=== PATIENT | female | born 1980 | race Caucasian/White ===

== ENCOUNTER → 2018-02-23 | Outpatient (CLI) | payer OTHER | LOC: MC.RAD 13:20 | DX: Z12.31 Encounter for screening mammogram for malignant neoplasm of breast (principal) ==

== ENCOUNTER 2018-06-13 14:00 | Outpatient (RCR) | payer OTHER ==
[2018-06-07 14:40] VITALS: BP 112/67; PULSE 88; TEMP 98.7
--- NOTE | 2018-06-07 16:33 | NUR ---
INT discontinued intact. Next appointment made
[2018-06-11 14:14] VITALS: BP 110/62; PULSE 78; TEMP 98
[~2018-06-13] VITALS: Ht 167.6 cm; Wt 101.0 kg
[2018-06-13 14:10] VITALS: BP 110/70; PULSE 84; TEMP 97.4
--- NOTE | 2018-06-13 15:20 | NUR ---
Report to Aime Stearns RN who assumed care at this time.
--- NOTE | 2018-06-13 15:26 | NUR ---
Report received fromViry rob.
== END 2018-06-13 16:23 | disposition home or self-care (01) ==
LOC: EUO 14:00
DX: D64.9 Anemia, unspecified (principal); Z79.899 Other long term (current) drug therapy
CPT/HCPCS: J2916; J7050

== ENCOUNTER 2018-08-06 14:00 | Outpatient (RCR) | payer OTHER ==
[2018-08-01 14:15] VITALS: BP 126/78; PULSE 65; TEMP 97.9
[2018-08-03 15:10] VITALS: BP 133/71; PULSE 80; TEMP 98.1
[~2018-08-06] VITALS: Ht 167.6 cm; Wt 102.3 kg
[~2018-08-06 14:00] MED LIST: DIFLUCAN150 MG PO
[2018-08-06 14:24] VITALS: BP 118/74; PULSE 77; TEMP 98.1
== END 2018-08-06 16:38 | disposition home or self-care (01) ==
LOC: EUO 14:00
DX: D64.9 Anemia, unspecified (principal); Z79.899 Other long term (current) drug therapy
CPT/HCPCS: J2916; J7050